=== PATIENT | female | born 1990 | race Two or more races ===

== ENCOUNTER 2016-12-14 12:15 | Outpatient (CLI) | payer MEDICAID | END 2016-12-14 15:25 | disposition home or self-care (01) | LOC: BC 12:15 → 2LDRP 12:15 → BC 15:25 | DX: O99.89 Other specified diseases and conditions complicating pregnancy, childbirth and the puerperium (principal); R10.9 Unspecified abdominal pain; Z3A.31 31 weeks gestation of pregnancy ==